=== PATIENT | female | born 2005 | race Hispanic/Latino ===

== ENCOUNTER 2023-10-10 20:17 | Emergency (ER) | payer SELFPAY ==
[~2023-10-10] VITALS: Ht 160 cm; Wt 63.5 kg
[2023-10-10 21:25] LABS: BASOPHILS % 0.2 % (0.0-1.0); EOSINOPHILS % 0.1 % (0.0-6.0); HEMATOCRIT 41.6 % (34.2-44.1); LYMPHOCYTES # (AUTO) 1.2 (1.0-3.2); LYMPHOCYTES % 9.6 % (18.0-39.1); MEAN CORPUSCULAR HEMOGLOBIN 28.1 pg (28-32); MEAN CORPUSCULAR HGB CONC 33.7 g/dL (31-35); MEAN CORPUSCULAR VOLUME 83.5 fL (81-99); MONOCYTES # (AUTO) 1.2 (0.2-0.8); MONOCYTES % 9.7 % (4.4-11.3); NEUTROPHILS # (AUTO) 9.6 (2.1-6.9); PLATELET COUNT 268 x10e3/uL (140-360); RED BLOOD COUNT 4.98 x10e6/uL (3.6-5.1); RED CELL DISTRIBUTION WIDTH 12.7 % (11.7-14.4); WHITE BLOOD COUNT 12.01 x10e3/uL (4.8-10.8)
[2023-10-10 21:30] LABS: INR 1.07; PROTHROMBIN TIME 14.6 seconds (11.9-14.5)
[2023-10-10 21:31] LABS: PARTIAL THROMBOPLASTIN TIME 38.6 seconds (23.8-35.5)
[2023-10-10 21:39] LABS: ALANINE AMINOTRANSFERASE 13 IU/L (0-55); ALBUMIN 4.2 g/dL (3.5-5.0); ALBUMIN/GLOBULIN RATIO 0.9 (0.8-2.0); ALKALINE PHOSPHATASE 60 IU/L (40-150); ANION GAP 18.4 mmol/L (8-16); BILIRUBIN,TOTAL 1.1 mg/dL (0.2-1.2); BLOOD UREA NITROGEN 14 mg/dL (7-26); BUN/CREATININE RATIO 17 (6-25); CALCIUM 9.5 mg/dL (8.4-10.2); CARBON DIOXIDE 22 mmol/L (22-29); CHLORIDE 100 mmol/L (98-107); CREATININE, SERUM 0.82 mg/dL (0.57-1.11); EST GLOMERULAR FILTRATION RATE 105 ML/MIN (>=60); GLUCOSE 80 mg/dL (74-118); SODIUM 137 mmol/L (136-145); TOTAL PROTEIN 9.1 g/dL (6.5-8.1)
[2023-10-10 21:43] LABS: POTASSIUM 3.4 mmol/L (3.5-5.1)
[2023-10-10] MEDS: SODIUM CHLORIDE 0.9% 1000ML 1,910 ML IV ONE (21:48)
[2023-10-10] MEDS: ACETAMINOPHEN 325 MG TAB PO ONE (21:49)
[2023-10-10] MEDS ORDERED: IOPAMIDOL 370 MG/ML 100 ML INFUS..BTL INJ ONE (21:53)
[2023-10-10 22:05] LABS: CLARITY,URINE CLOUDY (CLEAR); COLOR,URINE YELLOW (YELLOW)
[2023-10-10 22:06] LABS: BILIRUBIN,URINE 3+ (NEGATIVE); GLUCOSE, URINE NEGATIVE (NEGATIVE); KETONES,URINE 2+ (NEGATIVE); LEUKOCYTE ESTERASE ,URINE NEGATIVE (NEGATIVE); NITRITE,URINE NEGATIVE (NEGATIVE); PH,URINE 6 (5 - 7); PROTEIN,URINE DIPSTICK 2+ (NEGATIVE); URINE UROBILINOGEN 1 mg/dL (0.2 - 1)
[2023-10-10 22:09] LABS: BACTERIA,URINE MANY /HPF; EPITHELIAL CELLS,URINE MODERATE /LPF; TRANSITIONAL EPI CELLS,URINE MODERATE
[2023-10-10 22:10] LABS: AMORPHOUS SEDIMENT,URINE MODERATE (FEW); MUCUS,URINE MODERATE (RARE)
[2023-10-11] MEDS ORDERED: AMOX TR-K CLV1 EAC2 PO (01:15)
[2023-10-11 01:19] VITALS: PULSE 103; RESP 20; TEMP 98.5; O2SAT 100
[2023-10-11] MEDS: DEXAMETHASONE 4 MG TAB PO STA (01:24)
[2023-10-12] MEDS ORDERED: PREDNISONE20 MG PO (13:37)
[2023-10-12] MEDS ORDERED: AMOX TR-K CLV1 EAC2 PO (13:37)
== END 2023-10-11 01:46 | disposition home or self-care (01) ==
LOC: ER 21:09
DX: R50.9 Fever, unspecified (principal); J03.90 Acute tonsillitis, unspecified; A48.8 Other specified bacterial diseases; Z11.52 Encounter for screening for COVID-19
CPT/HCPCS: 36415; 70491; 71045; 80053; 81001; 83518; 83605; 84702; 85025; 85610; 85730; 87040; 87070; 87086; 99284; J0295; J7030; J7050; J8540; Q9967; U0002